=== PATIENT | female | born 1975 | race American Indian/Alaskan Native ===

== ENCOUNTER → 2019-12-26 09:07 | Outpatient (BNVA) | payer BC, SELFPAY | PROVIDERS: Family Provider Family Medicine; PCP Family Medicine; Visit Provider Nurse Practitioner Women's Health | DX: Z32.01 Encounter for pregnancy test, result positive (principal); O02.81 Inappropriate change in quantitative human chorionic gonadotropin (hCG) in early pregnancy; Z32.00 Encounter for pregnancy test, result unknown | CPT/HCPCS: 84702 ==

== ENCOUNTER → 2019-12-28 09:29 | Outpatient (BNVA) | payer BC, SELFPAY | PROVIDERS: Family Provider Family Medicine; PCP Family Medicine; Visit Provider Nurse Practitioner Women's Health | DX: Z34.91 Encounter for supervision of normal pregnancy, unspecified, first trimester (principal); Z78.9 Other specified health status | CPT/HCPCS: 76817 ==

== ENCOUNTER → 2020-01-11 14:32 | Outpatient (BNVA) | payer BC, OTHER, SELFPAY | PROVIDERS: Family Provider Family Medicine; PCP Family Medicine; Visit Provider Nurse Practitioner Women's Health | DX: Z01.89 Encounter for other specified special examinations (principal) | CPT/HCPCS: 84315 ==

== ENCOUNTER → 2020-01-17 13:47 | Outpatient (BNVA) | payer BC, SELFPAY | PROVIDERS: Family Provider Family Medicine; PCP Family Medicine; Visit Provider Nurse Practitioner Women's Health | DX: O09.521 Supervision of elderly multigravida, first trimester (principal); O20.0 Threatened abortion | CPT/HCPCS: 84315; 84702; 85027; 86850; 86900 ==

== ENCOUNTER → 2020-01-18 15:42 | Outpatient (BNVA) | payer BC, SELFPAY | PROVIDERS: Family Provider Family Medicine; PCP Family Medicine; Visit Provider Nurse Practitioner Women's Health | DX: O20.0 Threatened abortion (principal) | CPT/HCPCS: 76817 ==

== ENCOUNTER → 2020-02-01 15:25 | Outpatient (BNVA) | payer BC, OTHER, SELFPAY | PROVIDERS: Family Provider Family Medicine; PCP Family Medicine; Referring Provider Nurse Practitioner Women's Health; Visit Provider Nurse Practitioner Women's Health | DX: O03.9 Complete or unspecified spontaneous abortion without complication (principal) | CPT/HCPCS: 84702 ==

== ENCOUNTER 2020-02-07 16:35 | Outpatient (CLI) | payer BC, SELFPAY ==
--- NOTE | 2020-02-07 16:51 | XR_ITS ---
WS: [id number] XR chest 2V* [id number] REASON FOR EXAM: FEVER, DYSPNEA, COUGH FINDINGS: The heart mediastinum were normal. The lung duff are well aerated. No pneumonia, pleural effusion, pulmonary edema, or mass effect. The hilum and apices are normal. There is a mild scoliotic curve convex to the right. XR/XR chest 2V* [id number] IMPRESSION: Negative chest for acute pathology.
== END 2020-02-07 16:36 | disposition home or self-care (01) ==
LOC: RAD 16:41
PROVIDERS: Family Provider Family Medicine; PCP Family Medicine; Visit Provider Family Medicine
DX: R50.9 Fever, unspecified (principal); R06.00 Dyspnea, unspecified; R05 Cough
CPT/HCPCS: 71046

== ENCOUNTER → 2020-03-10 15:57 | Outpatient (BNVA) | payer BC, SELFPAY | PROVIDERS: Family Provider Family Medicine; PCP Family Medicine; Visit Provider Nurse Practitioner Women's Health | DX: N89.8 Other specified noninflammatory disorders of vagina (principal); O03.4 Incomplete spontaneous abortion without complication | CPT/HCPCS: 84702 ==

== ENCOUNTER 2021-09-22 07:55 | Outpatient (CLI) | payer BC, SELFPAY ==
--- NOTE | 2021-09-22 08:00 | USCV_ITS ---
Martha Taylor Age: 46 Gender: F : 1975 Exam Date: 09/22/2021 08:20 Ordering Phys: Marcelina Hawk Technologist: Marisa Mitchell Exam Location: [facility] – [place] Indication: LEFT LEG PAIN, ANKLE EDEMA HISTORY: left and right ankle/calf area is red and warm to the touch. Developed within past 48 hours PROCEDURES: Venous duplex imaging was performed in only the left lower extremity. The following venous structures were evaluated: common femoral vein, profunda vein, proximal portion of the greater saphenous vein, superficial femoral vein, and the popliteal vein. In addition, the posterior tibial and peroneal trunk were evaluated. FINDINGS: Negative for left lower extremity DVT CONCLUSIONS No evidence of left lower extremity DVT. Fawad Gonsalez MD (Electronically Signed) Final Date: 22 September 2021 10:07 S
== END 2021-09-22 07:56 | disposition home or self-care (01) ==
LOC: RAD 08:01
PROVIDERS: PCP Family Medicine; Visit Provider Nurse Practitioner Family
DX: M79.605 Pain in left leg (principal); R60.0 Localized edema
CPT/HCPCS: 93971

== ENCOUNTER 2021-09-29 12:19 | Outpatient (CLI) | payer BC, SELFPAY ==
--- NOTE | 2021-09-29 12:00 | MM_ITS ---
WS: [id number] BILATERAL SCREENING DIGITAL MAMMOGRAM WITH CAD HISTORY: Z12.39 - Encounter for other screening for malignant neop... COMPARISON: 11/24/2018, 11/01/2018 and 12/20/2017 Bilateral CC and MLO views submitted. Computer aided detection analyzed. Breast composition: The breasts are heterogeneously dense, which may obscure small masses. No suspici ous masses, microcalcifications or architectural distortion. Benign calcification RIGHT breast. Asymm etries within each breast are stable. MM/[place] [id number] IMPRESSION: BI-RADS: 2-Benign FOLLOW UP: 1 Year Follow-up
== END 2021-09-29 12:20 | disposition home or self-care (01) ==
LOC: RADSHAW 12:21
PROVIDERS: Visit Provider Nurse Practitioner Women's Health
DX: Z12.39 Encounter for other screening for malignant neoplasm of breast (principal)
CPT/HCPCS: 77067

== ENCOUNTER → 2022-09-14 15:09 | Outpatient (BNVA) | payer BC, SELFPAY | PROVIDERS: Visit Provider Nurse Practitioner Women's Health | DX: Z12.4 Encounter for screening for malignant neoplasm of cervix (principal); A60.09 Herpesviral infection of other urogenital tract; N91.2 Amenorrhea, unspecified; N76.0 Acute vaginitis; Z01.419 Encounter for gynecological examination (general) (routine) without abnormal findings | CPT/HCPCS: 82670; 83001; 84146; 84443; 87624 ==

== ENCOUNTER → 2023-07-14 09:20 | Outpatient (BNVA) | payer SELFPAY | PROVIDERS: Visit Provider Nurse Practitioner Women's Health | DX: N39.0 Urinary tract infection, site not specified (principal) | CPT/HCPCS: 81000; 87086 ==

== ENCOUNTER → 2024-05-17 09:51 | Outpatient (BNVA) | payer OTHER, SELFPAY | PROVIDERS: Visit Provider Nurse Practitioner Women's Health | DX: R10.2 Pelvic and perineal pain (principal); R30.0 Dysuria; A60.09 Herpesviral infection of other urogenital tract; N89.8 Other specified noninflammatory disorders of vagina | CPT/HCPCS: 84315; 87086; 88305 ==

== ENCOUNTER 2024-07-12 08:40 | Outpatient (CLI) | payer OTHER, SELFPAY ==
--- NOTE | 2024-07-12 08:30 | MM_ITS ---
WS: [id number] SCREENING DIGITAL BREAST TOMOSYNTHESIS MAMMOGRAM WITH CAD HISTORY: Z12.31 - Encounter for screening mammogram for malignant ... COMPARISON: 09/29/2021, 09/24/2019 Bilateral CC and MLO with tomosynthesis and synthetic mammography submitted. Computer aided detection analyzed. Breast composition: The breasts are heterogeneously dense, which may obscure small masses. More promi nent asymmetry measuring 1.6 cm seen on the LEFT MLO projection in the superior breast. Mild asymmetr y was noted in this location on prior studies but appears more prominent today. Otherwise no interval change. Benign calcification RIGHT breast. MM/[place] [id number] IMPRESSION: BI-RADS: 0-Incomplete: Need additional imaging evaluation FOLLOW UP: Need Additional Imaging LEFT breast: Spot compression views ( MLO). True ML. Ultrasound to follow if ab normality persists.
== END 2024-07-12 08:41 | disposition home or self-care (01) ==
LOC: RAD 08:40
PROVIDERS: PCP Nurse Practitioner Women's Health; Visit Provider Nurse Practitioner Women's Health
DX: Z12.31 Encounter for screening mammogram for malignant neoplasm of breast (principal); R92.1 Mammographic calcification found on diagnostic imaging of breast; R92.333 Mammographic heterogeneous density, bilateral breasts
CPT/HCPCS: 77063; 77067

== ENCOUNTER 2024-08-07 13:00 | Outpatient (CLI) | payer OTHER, SELFPAY ==
--- NOTE | 2024-08-07 13:00 | MM_ITS ---
WS: [email or web address] ADDITIONAL VIEWS LEFT MAMMOGRAM with tomosynthesis. LEFT BREAST ULTRASOUND HISTORY: R92.8 - Other abnormal and inconclusive findings on diagn... COMPARISON: None available. LEFT MAMMOGRAM: Spot compression views and true ML with tomosynthesis and sympathetic mammography. Breast composition: The breasts are heterogeneously dense, which may obscure small masses. Asymmetry persists but only on the MLO projection in the superior breast at a middle depth. Spot comp ression view eliminates the abnormality. Ultrasound will be performed along the superior breast from 11-1 o'clock. LEFT BREAST ULTRASOUND 2-D and color Doppler imaging submitted. No solid mass or shadowing is identified. There is a well-circumscribed cyst at 1:00, 2 cm the nipple measuring 5 x 4 x 4 mm. MM/MM diag tomosynthesis [id number] IMPRESSION: BI-RADS: 2 - Benign FOLLOW UP: 1 Year Follow-up
--- NOTE | 2024-08-07 13:30 | US_ITS ---
WS: [email or web address] ADDITIONAL VIEWS LEFT MAMMOGRAM with tomosynthesis. LEFT BREAST ULTRASOUND HISTORY: R92.8 - Other abnormal and inconclusive findings on diagn... COMPARISON: None available. LEFT MAMMOGRAM: Spot compression views and true ML with tomosynthesis and sympathetic mammography. Breast composition: The breasts are heterogeneously dense, which may obscure small masses. Asymmetry persists but only on the MLO projection in the superior breast at a middle depth. Spot comp ression view eliminates the abnormality. Ultrasound will be performed along the superior breast from 11-1 o'clock. LEFT BREAST ULTRASOUND 2-D and color Doppler imaging submitted. No solid mass or shadowing is identified. There is a well-circumscribed cyst at 1:00, 2 cm the nipple measuring 5 x 4 x 4 mm. US/US breast LT limited* [id number] IMPRESSION: BI-RADS: 2 - Benign FOLLOW UP: 1 Year Follow-up
== END 2024-08-07 13:01 | disposition home or self-care (01) ==
PROVIDERS: PCP Nurse Practitioner Women's Health; Visit Provider Nurse Practitioner Women's Health
DX: R92.8 Other abnormal and inconclusive findings on diagnostic imaging of breast (principal); R92.332 Mammographic heterogeneous density, left breast; N60.02 Solitary cyst of left breast
CPT/HCPCS: 76642; 77061; G0279

== ENCOUNTER 2025-08-12 08:57 | Outpatient (CLI) | payer OTHER, SELFPAY ==
--- NOTE | 2025-08-12 09:06 | MM_ITS ---
WS: [id number] BILATERAL SCREENING DIGITAL TOMOSYNTHESIS MAMMOGRAM WITH CAD HISTORY: SCREENING COMPARISON: 08/07/2024, 07/12/2024, 11/01/2018, 09/29/2021 Bilateral CC and MLO views with tomosynthesis and synthetic mammography submitted. Computer aided detection analyzed. Breast composition: The breasts are heterogeneously dense, which may obscure small masses. No suspicious masses, microcalcifications or architectural distortion. MM/MM scr tomosynthesis [id number] IMPRESSION: BI-RADS: 2 - Benign FOLLOW UP: 1 Year Follow-up
== END 2025-08-12 08:58 | disposition home or self-care (01) ==
LOC: RAD 08:57
PROVIDERS: PCP Nurse Practitioner Women's Health; Visit Provider Nurse Practitioner Women's Health
DX: Z12.31 Encounter for screening mammogram for malignant neoplasm of breast (principal); R92.333 Mammographic heterogeneous density, bilateral breasts
CPT/HCPCS: 77063; 77067